=== PATIENT | male | born 1975 ===

== ENCOUNTER → 2018-05-19 | Outpatient (CLI) | payer OTHER ==
[~2018-05-19] MED LIST: IBUP-1060 PO
--- NOTE | 2018-05-19 23:28 | PAIN ---
DATE OF SERVICE: 05/19/2018 INITIAL CONSULTATION FOR PAIN CLINIC CHIEF COMPLAINT: Low back and bilateral lower extremity pain. HISTORY OF PRESENT ILLNESS: This is a 43-year-old male who presents with history of pain in the low back for about 2 years, starting suddenly, but not the result of any specific injury or action that he is aware of. It has been increasing since that time in the low back itself bilaterally, radiating into the posterior gluteus, posterolateral thigh, lateral anterior thighs, medial thighs, especially on the right side in the lower leg, but present bilaterally. The patient reports it is a constant pain that is sharp, stabbing, throbbing and shooting with radiating pain in the legs, tingling and burning. The patient has had multiple physical therapies over the past 2 years, most recently in March of this year and he is still doing the exercises and stretching with that, but he has still significant pain. The patient reports that he is taking Percocet as well as Soma, both of which do decrease the pain, but only by about 40%. The patient reports it awakens him from sleep at night at least 3-4 times, does not affect his bowel or bladder control, but does affect his ability to walk. He is not using any assistive devices, however, to ambulate. The patient did have some plain films of the lumbar spine and is waiting for MRI scan to be scheduled. Plain films of the lumbar spine is showing disk space well maintained throughout the lumbar spine with moderate narrowing at L4-L5 and mild narrowing at L5-S1. The patient rates his disability rating from 0-10, 10 being the worst, is an 8 with family and home responsibilities, recreation, social activity, self-care and life support activities, and 9 with occupation and sexual behavior. The patient reports no overt loss of motor function, but significant fatigability, especially of the right lower extremity greater than the left, but present bilaterally with walking more than about 15 minutes or so, but no complete loss of function. PAST MEDICAL HISTORY: Significant for hearing loss and arthritis. PREVIOUS SURGERIES: Include vein stripping in bilateral lower extremities x 3, left knee surgery x 3, right shoulder surgery x 2, left shoulder surgery x 1, tonsillectomy, lithotripsy and ear tubes in the past. CURRENT MEDICATIONS: Include ibuprofen, Percocet, and Soma. ALLERGIES: THE PATIENT IS ALLERGIC TO CORTISONE, AMOXICILLIN AND HYDROCODONE AND PRESERVATIVES FROM FLU SHOT. FAMILY HISTORY: Significant for diabetes. SOCIAL HISTORY: The patient drinks alcohol about 3 drinks 2-3 times a week. Does not smoke, but does chew tobacco for the last 28 years. He is . Does not use any illegal, illicit or recreational drugs. He has 5 children living at home. He lives locally in [place], [place]. REVIEW OF SYSTEMS: The patient's review of systems is positive for those items mentioned in history of present illness. All systems reviewed and otherwise negative. It is complete, full and well documented on the patient's chart. PHYSICAL EXAMINATION: VITAL SIGNS: Today, the patient's blood pressure is 130/89, pulse 70, respirations 16, temperature 98.0 degrees Fahrenheit, height is 5 feet 11 inches, weighs 299 pounds. GENERAL: The patient is awake, alert, oriented, appropriate, very pleasant demeanor. HEENT: Head shows normocephalic, atraumatic. Extraocular movements are intact and symmetrical. Oral cavity: Mucous membranes are moist and pink. Dentition is intact. NECK: Shows anterior throat supple without palpable lymphadenopathy noted. Swallow reflex is symmetrical. CHEST: Shows normal on inspection. Breath sounds are clear to auscultation bilaterally. HEART: Shows S1, S2 clear. No murmurs auscultated. ABDOMEN: Soft, obese, nontender, nondistended. No palpable organomegaly is noted. No rebound or guarding demonstrated. BACK: Shows spine grossly in the midline. Normal appearing thoracic kyphosis and lumbar lordotic curvature. Lumbar paraspinous muscle shows symmetrical on inspection. On palpation, he has some mild tenderness throughout the upper, middle and lower distribution of the paraspinous musculature, more so towards the inferior aspect of the paraspinous muscles, but symmetrical. No evidence of atrophy or hypertrophy. No trigger points. No radiation of pain. No tenderness over the spinous processes, sacrum or sacroiliac regions. The patient has good rotational motion of lumbar spine, both laterally greater than 10 degrees right and left as well as extension greater than 10 degrees, forward flexion 45 degrees without significant pain reported as well. EXTREMITIES: The patient's lower extremities show deep tendon reflexes 2+ in the patellar, 1+ tendo-calcaneus tendons. Motor exam is strong with 5/5 dorsiflexion, extension, quadriceps and hamstring flexion and symmetrical. Peripheral pulses are 1+ posterior tibia. No peripheral edema is noted. The patient does have an area in the left medial calf, very firm indurated area, which is moderately painful, suspicious for a superficial blood clot. No such findings on the right side. Straight leg raise is noted to be negative for reproduction of radicular symptoms bilaterally. Gaenslen's and Lorenzo's maneuvers are negative bilaterally as well. The patient is able to stand, stand on his toes without significant difficulty or loss of balance. He walks with a slight shuffling gait, but does not appear to favor the right or left lower extremity significantly, not using any assistive devices to ambulate. SKIN: Shows warm and dry. Good turgor. No edema. No sores, rashes or bruising throughout. IMPRESSION: 1. This is a 43-year-old male with a 2-year history of increasing pain in the low back and bilateral lower extremities as noted. 2. Plain films of the lumbar spine as noted. 3. Recent physical therapy without significant improvement. 4. Arthritis. PLAN: Options were discussed with the patient including conservative medical managements, continued physical therapies, interventional techniques. He would like to pursue interventional techniques. He has already had physical therapy and he is still doing the exercises without significant improvement and with L4-L5 and L5-S1 narrowing on the plain films and radicular pain in the L4-L5 dermatomal distribution, we will preauthorize the patient for L4-L5 translaminar lumbar epidural steroid injection. The patient will return once preauthorization is obtained. We discussed the procedure using descriptions as well as anatomical models to describe the procedure and the patient will follow up as scheduled. LISA CORTES MD DR: DARIUS/nola JOB#: [id number] / [id number]
== END | disposition home or self-care (01) ==
LOC: PNCL 14:06
PROVIDERS: ATTEND Anesthesiology
DX: M54.5 Low back pain (principal); M79.604 Pain in right leg; M79.605 Pain in left leg; M19.90 Unspecified osteoarthritis, unspecified site; R20.2 Paresthesia of skin; F17.220 Nicotine dependence, chewing tobacco, uncomplicated
CPT/HCPCS: G0463